=== PATIENT | female | born 1945 | race Two or more races ===

== ENCOUNTER 2024-08-27 13:45 | Inpatient (IN) | payer OTHER ==
[2024-08-27 14:35] LABS: BASO % 0.8 % (0-2.0); EOS % 0.7 % (0-4.5); HEMOGLOBIN 12.1 GM/dL (10.7-15.3); LYMPH % 20.7 % (8-40); MCH 30.6 pg (25.7-33.7); MCHC 32.8 g/dl (32.0-36.0); MEAN CELL VOLUME 93.2 fl (80-96); MEAN PLT VOLUME 7.5 fl (7.5-11.1); MONO % 5.6 % (3.8-10.2); NEUT % 72.2 % (42.8-82.8); PLATELET COUNT 387 10^3/uL (134-434); RBC 3.97 M/mm3 (3.60-5.2); RDW 14.3 % (11.6-15.6); WHITE BLOOD COUNT 11.8 K/mm3 (4.0-10.0)
[2024-08-27 14:41] LABS: INR 1.06 (0.83-1.09)
[2024-08-27 14:43] LABS: ACTIVATED PTT 27.8 SECONDS (25.2-36.5)
[2024-08-27 15:10] LABS: POTASSIUM 4.3 mmol/L (3.5-5.1)
[2024-08-27 15:11] LABS: CALCIUM 9.2 mg/dL (8.5-10.1)
[2024-08-27 15:12] LABS: ALBUMIN 3.6 g/dl (3.4-5.0); BLOOD UREA NITROGEN 19.2 mg/dL (7-18)
[2024-08-27 15:15] LABS: CREATININE 0.9 mg/dL (0.55-1.3)
[2024-08-27 15:17] LABS: BILIRUBIN,TOTAL 0.5 mg/dL (0.2-1); TOT PROT 7.6 g/dl (6.4-8.2)
[2024-08-27 17:18] LABS: HIV INTERPRETATION PRESUMPTIVE POSITIVE (NEGATIVE)
[2024-08-27 22:28] LABS: HEMATOCRIT 39.7 % (32.4-45.2); HEMOGLOBIN 12.9 GM/dL (10.7-15.3); MCH 30.4 pg (25.7-33.7); MCHC 32.4 g/dl (32.0-36.0); MEAN CELL VOLUME 93.7 fl (80-96); MEAN PLT VOLUME 7.9 fl (7.5-11.1); PLATELET COUNT 335 10^3/uL (134-434); RBC 4.24 M/mm3 (3.60-5.2); RDW 14.1 % (11.6-15.6); WHITE BLOOD COUNT 14.7 K/mm3 (4.0-10.0)
[2024-08-27 23:40] VITALS: BMI 16.0
[2024-08-28 05:06] LABS: EPI CELLS 9 /uL (0-25.1); HYALINE CASTS 0 /uL (0-3.1); URINE APPEARANCE CLOUDY; URINE BACTERIA >9,000 /uL (0-1359); URINE BILIRUBIN NEGATIVE (NEGATIVE); URINE COLOR YELLOW; URINE GLUCOSE (UA) NEGATIVE (NEGATIVE); URINE KETONE NEGATIVE (NEGATIVE); URINE LEUK ESTERASE 2+ (NEGATIVE); URINE NITRITE NEGATIVE (NEGATIVE); URINE PROTEIN NEGATIVE (NEGATIVE); URINE RBC 22 /uL (0-23.9); URINE UROBILINOGEN 0.2 mg/dL (0.2-1.0); URINE WBC 264 /uL (0-25.8)
[2024-08-28 08:58] LABS: HEMATOCRIT 38.6 % (32.4-45.2); HEMOGLOBIN 13.5 GM/dL (10.7-15.3); MCH 32.2 pg (25.7-33.7); MCHC 34.8 g/dl (32.0-36.0); MEAN CELL VOLUME 92.4 fl (80-96); MEAN PLT VOLUME 7.7 fl (7.5-11.1); PLATELET COUNT 357 10^3/uL (134-434); RBC 4.18 M/mm3 (3.60-5.2); RDW 14.1 % (11.6-15.6); WHITE BLOOD COUNT 10.9 K/mm3 (4.0-10.0)
[2024-08-28] MEDS: ENOXAPARIN NA (PORCINE) 40 MG/0.4 ML DISP.SYRIN SQ SCH (09:17)
[2024-08-28 09:18] LABS: POTASSIUM 3.8 mmol/L (3.5-5.1)
[2024-08-28] MEDS: CEFTRIAXONE 1 G/50 ML PREMIX 50 ML IVPB SCH (09:18)
[2024-08-28 09:22] LABS: BLOOD UREA NITROGEN 22.2 mg/dL (7-18); CALCIUM 9.3 mg/dL (8.5-10.1)
[2024-08-28 09:23] LABS: MAGNESIUM 2.2 mg/dL (1.8-2.4)
[2024-08-28 09:26] LABS: PHOSPHOROUS 3.8 mg/dL (2.5-4.9)
[2024-08-28 09:27] LABS: TOT PROT 8.2 g/dl (6.4-8.2)
[2024-08-28] MEDS: SODIUM CHLORIDE 1,000 ML IV SCH (13:17)
[2024-08-28 15:31] VITALS: BP 145/64; PULSE 76; RESP 18; TEMP 98.4
[2024-08-28] MEDS ORDERED: SODIUM CHLORIDE 1,000 ML IV SCH (18:41)
== END 2024-08-28 21:10 | disposition home or self-care (01) | DRG 149 ==
LOC: JER 13:45 → JERBED 18:10 → OBSVTOIN 18:10 → J4W 23:03
PROVIDERS: ADMIT Internal Medicine; ATTEND Internal Medicine
DX: H81.399 Other peripheral vertigo, unspecified ear (principal); Z21 Asymptomatic human immunodeficiency virus [HIV] infection status; E11.9 Type 2 diabetes mellitus without complications; E78.5 Hyperlipidemia, unspecified; F79 Unspecified intellectual disabilities; R00.1 Bradycardia, unspecified; F25.9 Schizoaffective disorder, unspecified; W18.30XA Fall on same level, unspecified, initial encounter; Y92.89 Other specified places as the place of occurrence of the external cause; Y99.8 Other external cause status
CPT/HCPCS: 0241U-QW; 36415; 70450-TC; 71045-TC-FY; 80053; 81003; 83036; 83735; 84100; 84443; 84484; 85025; 85027; 85610; 85730; 86803; 87086; 87186; 87389; 93005; 93010; 93306-TC; 97116-GP; 97162-GP; 99285-25